=== PATIENT | female | born 1950 | race Caucasian/White ===

== ENCOUNTER 2018-03-29 06:07 | Day surgery (SDC) | payer OTHER ==
[~2018-03-29] VITALS: Ht 167.6 cm; Wt 56.3 kg
== END 2018-03-29 09:44 | disposition home or self-care (01) ==
LOC: ORSCSDS 06:07
PROVIDERS: Orthopaedic Surgery
PROC: 0SBC4ZZ Excision of Right Knee Joint, Percutaneous Endoscopic Approach (ICD-10-PCS; principal; 2018-03-29 07:30)
DX: S83.241A Other tear of medial meniscus, current injury, right knee, initial encounter (principal); M94.261 Chondromalacia, right knee; M17.0 Bilateral primary osteoarthritis of knee
CPT/HCPCS: J0171; J0690; J1100; J2250; J2370; J2405; J3010; J7120

== ENCOUNTER → 2018-08-21 | Outpatient (CLI) | payer OTHER | END | disposition home or self-care (01) | LOC: LAB SHORT 08:05 → PLD 08:05 | DX: D48.5 Neoplasm of uncertain behavior of skin (principal) | CPT/HCPCS: 88304 ==

== ENCOUNTER 2019-02-19 07:20 | Day surgery (SDC) | payer OTHER ==
[~2019-02-19] VITALS: Ht 167.6 cm; Wt 55.4 kg
--- NOTE | 2019-02-19 08:28 | NUR ---
02/19/19 0828 Randa Lewis `1 IV IMSS IN RFA BY MA VALVE 1 MISSED IV IN RAC BY MA VALVE 1 GOOD IV IN RH BY ADILENE DICK TOW
== END 2019-02-19 09:40 | disposition home or self-care (01) ==
LOC: ORSCSDS 07:20
PROVIDERS: Internal Medicine Gastroenterology
PROC: 0DJD8ZZ Inspection of Lower Intestinal Tract, Via Natural or Artificial Opening Endoscopic (ICD-10-PCS; principal; 2019-02-19 09:00)
DX: Z12.11 Encounter for screening for malignant neoplasm of colon (principal); Z80.0 Family history of malignant neoplasm of digestive organs; K57.30 Diverticulosis of large intestine without perforation or abscess without bleeding; K64.8 Other hemorrhoids
CPT/HCPCS: J2704; J7120

== ENCOUNTER → 2020-08-25 | Outpatient (CLI) | payer OTHER | END | disposition home or self-care (01) | LOC: LAB 14:50 → LAB SHORT 14:50 | PROVIDERS: Nurse Practitioner | DX: Z01.419 Encounter for gynecological examination (general) (routine) without abnormal findings (principal) | CPT/HCPCS: G0145 ==